=== PATIENT | male | born 1985 | race Caucasian/White ===

== ENCOUNTER 2018-11-08 01:47 | Emergency (ER) | payer MEDICAID ==
[~2018-11-08] VITALS: Ht 177.8 cm; Wt 108.9 kg
[2018-11-08 01:49] VITALS: BP 145/78
--- NOTE | 2018-11-08 01:54 | NUR ---
PT AMBULATED TO BED 1. Addendum: 11/08/18 at 0159 by MEDJ PT AMBULATED TO BED 6.
[2018-11-08] MEDS ORDERED: KETOROLAC 60 MG/2 ML VIAL IM ONE ×2 (02:00→02:10)
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
--- NOTE | 2018-11-08 02:35 | NUR ---
XRAY AT BEDSIDE.
--- NOTE | 2018-11-08 02:50 | NUR ---
PT TAKEN TO XRAY VIA WC.
--- NOTE | 2018-11-08 03:30 | NUR ---
PT SLEEPING IN BED WITH VSS. SKIN PINK, WARM, DRY. BREATHING EVEN, UNLABORED.
[2018-11-08] MEDS ORDERED: MORPHINE SULFATE 4 MG/ML SYR IM ONE (03:40)
--- NOTE | 2018-11-08 04:30 | NUR ---
PT IS GROGGY, HAS DIFFICULTY KEEPING EYES OPEN AND WILL REQUIRE WC ASSIST.
[2018-11-08 04:40] VITALS: BP 140/85
--- NOTE | 2018-11-08 04:40 | NUR ---
Patient discharged with v/s stable. Written and verbal after care instructions given and explained. Patient alert, oriented and verbalized understanding of instructions. Wheel chair assist provided by EMT. All questions addressed prior to discharge. ID band removed. Patient advised to follow up with PMD. Rx of Motrin and [place] given. Patient educated on indication of medication including possible reaction and side effects. Opportunity to ask questions provided and answered.
--- NOTE | 2018-11-08 04:40 | NUR ---
Note undone in EDM - 11/08/18 at 0508 by [facility] Patient discharged with v/s stable. Written and verbal after care instructions given and explained. Patient alert, oriented and verbalized understanding of instructions. Ambulatory with steady gait. All questions addressed prior to discharge. ID band removed. Patient advised to follow up with PMD. Rx of Motrin and [place] given. Patient educated on indication of medication including possible reaction and side effects. Opportunity to ask questions provided and answered.
== END 2018-11-08 04:40 | disposition home or self-care (01) ==
LOC: MED 01:47
DX: S43.101A Unspecified dislocation of right acromioclavicular joint, initial encounter (principal); V87.8XXA Person injured in other specified noncollision transport accidents involving motor vehicle (traffic), initial encounter; Y93.89 Activity, other specified; Y92.89 Other specified places as the place of occurrence of the external cause; Y99.8 Other external cause status
CPT/HCPCS: 73000; 96372; 99283; J1885; J2270

== ENCOUNTER 2020-12-16 20:11 | Emergency (ER) | payer MEDICAID, OTHER ==
[~2020-12-16] VITALS: Ht 177.8 cm; Wt 136.1 kg
[2020-12-16 20:40] VITALS: BP 145/81
--- NOTE | 2020-12-16 20:40 | NUR ---
TO BED AMBULATORY
--- NOTE | 2020-12-16 20:45 | NUR ---
PT. IS A 35 Y/O MALE THAT CAME INTO ED WITH C/O OF RIGHT LEG PAIN. PT. STATES THAT SINCE MONDAY AFTERNOON, HIS RIGHT LEG HAS BECOME RED AND SWOLLEN. PT. ALSO STATES THAT HE HAS PAIN WHEN HE STANDS ON IT, AND RATES IT AT 10/10 WHEN STANDING. PT. STATES " I FEEL LIKE THERE IS PRESSURE ON MY RIGHT LEG." PT. HAS 4CM ABRASION TO RIGHT LEG. PT. ALSO STATES HE HAD A FEVER ON MONDAY AND ADMITS TO NAUSEA, VOMIT, BUT DENIES DIARRHEA. AAOX4; VSS; BEDRAILS UP X1; HOB ELEVATED. PMH: ASTHMA, HEP. C ALLERGIES: NKA
[2020-12-16] MEDS ORDERED: KETOROLAC 30 MG/ML VIAL IM ONE (21:20)
[2020-12-16] MEDS ORDERED: cephALEXin 500 MG CAP PO ONE (21:20)
--- NOTE | 2020-12-16 21:28 | NUR ---
LAB AT BEDSIDE
[2020-12-16 21:38] LABS: BASOPHILS % (AUTO) 0.4 % (0.0-2.0); EOSINOPHILS # (AUTO) 0.1 K/uL (0-0.4); EOSINOPHILS % (AUTO) 0.7 % (0.0-4.0); HEMATOCRIT 36.1 % (36-52); HEMOGLOBIN 11.6 g/dL (12.0-18.0); LYMPHOCYTES # (AUTO) 1.4 K/uL (2.0-11.5); LYMPHOCYTES % (AUTO) 12.5 % (20.5-51.1); MEAN CORPUSCULAR HEMOGLOBIN 24 pg (27-31); MEAN CORPUSCULAR HGB CONC 32 g/dL (33-37); MEAN CORPUSCULAR VOLUME 73.3 fL (80-94); MONOCYTES % (AUTO) 8.9 % (1.7-9.3); NEUTROPHILS # (AUTO) 8.8 K/uL (1.8-7.7); NEUTROPHILS % (AUTO) 77.5 % (42.2-75.2); PLATELET COUNT (AUTO) 306 K/uL (140-450); RED BLOOD CELL COUNT(AUTO) 4.93 MIL/uL (4.20-6.10); RED CELL DISTRIBUTION WIDTH 17.5 % (11.6-13.7); WHITE BLOOD COUNT (AUTO) 11.3 K/uL (4.8-10.8)
--- NOTE | 2020-12-16 21:38 | NUR ---
ULTRASOUND AT BEDSIDE
[2020-12-16 21:45] LABS: ANION GAP 8.2 (8-16); CARBON DIOXIDE 29.5 mmol/L (21-32); CREATININE 1.2 mg/dL (0.6-1.3); POTASSIUM 3.7 mmol/L (3.5-5.1)
[2020-12-16] MEDS ORDERED: NAPR-54 PO (22:00)
[2020-12-16] MEDS ORDERED: CEPH-588 PO (22:00)
--- NOTE | 2020-12-16 22:00 | NUR ---
PT. LAYING COMFORTABLY IN SUPINE POSITION, VOICES NO COMPLAINTS AT THIS TIME.
[2020-12-16] MEDS ORDERED: ACET-10509 PO (22:01)
[2020-12-16 22:09] VITALS: BP 145/81
--- NOTE | 2020-12-16 22:09 | NUR ---
Patient discharged with v/s stable. Written and verbal after care instructions given and explained. Patient alert, oriented and verbalized understanding of instructions. Ambulatory with steady gait. All questions addressed prior to discharge. ID band removed. Patient advised to follow up with PMD. Rx of ACETAMINOPHEN, KEFLEX, AND NAPROXEN given. Patient educated on indication of medication including possible reaction and side effects. Opportunity to ask questions provided and answered.
== END 2020-12-16 22:09 | disposition home or self-care (01) ==
LOC: MED 20:11
DX: L03.115 Cellulitis of right lower limb (principal); J45.909 Unspecified asthma, uncomplicated; Z79.899 Other long term (current) drug therapy
CPT/HCPCS: 36415; 80048; 85025; 93971; 96372; 99284; J1885

== ENCOUNTER 2020-12-27 23:06 | Emergency (ER) | payer OTHER ==
[~2020-12-27 23:06] MED LIST: ACET-10509 PO; CEPH-588 PO; NAPR-54 PO
[2020-12-28 00:35] VITALS: BP 132/84
[2020-12-28] MEDS ORDERED: CLINDAMYCIN 900 MG/6 ML VIAL IV ONE (00:41)
--- NOTE | 2020-12-28 00:47 | NUR ---
PT UNABLE TO BE FOUND IN LOBBY AND CALLED ON PERSONAL CELLPHONE. PT REQUESTING TO BE SENT TO [facility], EXPLAINED TO PT THE PROCEDURES OF THE ADMISSION PROCESS. 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 HCEN MADE AWARE.
--- NOTE | 2020-12-28 01:09 | NUR ---
PATIENT ELOPED FROM FACILITY. DISCHARGE INSTRUCTIONS NOT GIVEN TO PATIENT. DR. CHEN NOTIFIED.
[2020-12-28] MEDS: CLINDAMYCIN 900 MG in DEXTROSE 5% 100 ML IV ONE (01:18)
[2020-12-28] MEDS ORDERED: NAPR-1704 PO (09:46)
[2020-12-28] MEDS ORDERED: SULF-58 PO (09:46)
== END 2020-12-28 01:09 | disposition left against medical advice (07) ==
LOC: MED 23:06
DX: L03.115 Cellulitis of right lower limb (principal)
CPT/HCPCS: 99281; J3490; 99283

== ENCOUNTER 2020-12-28 09:08 | Emergency (ER) | payer OTHER ==
[~2020-12-28] VITALS: Ht 177.8 cm; Wt 151.5 kg
[2020-12-28 09:20] VITALS: BP 145/76
--- NOTE | 2020-12-28 09:33 | NUR ---
TO ER BED 3
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
--- NOTE | 2020-12-28 09:40 | NUR ---
ermd at bedside for assessment
[2020-12-28] MEDS ORDERED: SULF-58 PO (09:46)
[2020-12-28] MEDS ORDERED: NAPR-1704 PO (09:46)
[2020-12-28 10:23] VITALS: BP 142/70
--- NOTE | 2020-12-28 10:24 | NUR ---
Patient discharged with v/s stable. Written and verbal after care instructions given and explained. Patient alert, oriented and verbalized understanding of instructions. Ambulatory with steady gait. All questions addressed prior to discharge. ID band removed. Patient advised to follow up with PMD. Rx of NAPROSYN,BACTRIM,KEFLEX given. Patient educated on indication of medication including possible reaction and side effects. Opportunity to ask questions provided and answered.
== END 2020-12-28 10:23 | disposition home or self-care (01) ==
LOC: MED 09:08
DX: L03.115 Cellulitis of right lower limb (principal); J45.909 Unspecified asthma, uncomplicated; Z79.899 Other long term (current) drug therapy
CPT/HCPCS: 90471; 90715; 99283

== ENCOUNTER 2021-11-27 06:09 | Emergency (ER) | payer OTHER ==
[~2021-11-27] VITALS: Ht 177.8 cm; Wt 158.8 kg
[~2021-11-27 06:09] MED LIST changes: +NAPR-1704 PO; +SULF-58 PO
[2021-11-27 06:19] VITALS: BP 158/77
--- NOTE | 2021-11-27 06:23 | NUR ---
Patient ambulated to bed 9.
[2021-11-27] MEDS ORDERED: KETOROLAC 30 MG/ML VIAL IVP ONE (06:35)
[2021-11-27] MEDS ORDERED: CLINDAMYCIN 300 MG in DEXTROSE 5% 50 ML IV ONE (06:35)
[2021-11-27] MEDS ORDERED: NACL 0.9% 1,000 ML IV ONE (06:35)
--- NOTE | 2021-11-27 06:46 | NUR ---
labs collected and taken to lab.
--- NOTE | 2021-11-27 06:46 | NUR ---
rad at bedside.
--- NOTE | 2021-11-27 06:49 | NUR ---
36 yo m bib self with c/c of 8/10 rt leg pain x2days. pt's rt lower leg is red and warm with what appears to have been an ulcer or bite angel. pt states he woke up 2 days ago and his leg was red. pt states he had a fever last night. denies taking medication for pain. reports he has been treated for rt leg cellulitis in the past. denies hx, rx and allergies
[2021-11-27] MEDS ORDERED: CLINDAMYCIN 600 MG/4 ML VIAL ONE (06:55)
--- NOTE | 2021-11-27 07:17 | NUR ---
report given to donald santiago. transfer of care at this time.
--- NOTE | 2021-11-27 07:18 | NUR ---
Received report from STEVE Rasheed. Transfer of care at this time.
[2021-11-27 07:45] LABS: BASOPHILS # (AUTO) 0.1 K/uL (0.00-0.22); BASOPHILS % (AUTO) 0.7 % (0.0-2.0); EOSINOPHILS # (AUTO) 0.3 K/uL (0-0.4); EOSINOPHILS % (AUTO) 2.9 % (0.0-4.0); HEMATOCRIT 32.5 % (36-52); HEMOGLOBIN 10.2 g/dL (12.0-18.0); LYMPHOCYTES # (AUTO) 1.6 K/uL (2.0-11.5); LYMPHOCYTES % (AUTO) 18.3 % (20.5-51.1); MEAN CORPUSCULAR HEMOGLOBIN 20 pg (27-31); MEAN CORPUSCULAR HGB CONC 31 g/dL (33-37); MEAN CORPUSCULAR VOLUME 63.2 fL (80-94); MONOCYTES # (AUTO) 0.9 K/uL (0.8-1.0); MONOCYTES % (AUTO) 10.3 % (1.7-9.3); NEUTROPHILS # (AUTO) 5.8 K/uL (1.8-7.7); NEUTROPHILS % (AUTO) 67.8 % (42.2-75.2); PLATELET COUNT (AUTO) 375 K/uL (140-450); RED BLOOD CELL COUNT(AUTO) 5.14 MIL/uL (4.20-6.10); RED CELL DISTRIBUTION WIDTH 19.7 % (11.6-13.7); WHITE BLOOD COUNT (AUTO) 8.6 K/uL (4.8-10.8)
[2021-11-27 08:17] LABS: CARBON DIOXIDE 27.7 mmol/L (21-32); CREATININE 1.1 mg/dL (0.6-1.3); POTASSIUM 3.7 mmol/L (3.5-5.1); TOTAL BILIRUBIN 0.2 mg/dL (0.0-1.0)
--- NOTE | 2021-11-27 08:25 | NUR ---
bryan platt) collected and given to analytical laboratory technician.
[2021-11-27] MEDS ORDERED: CLIN300C2 PO (09:05)
[2021-11-27] MEDS ORDERED: BACI1PAC4 TP (09:05)
[2021-11-27] MEDS ORDERED: IBUP-2213 PO (09:05)
[2021-11-27 09:15] VITALS: BP 149/73
--- NOTE | 2021-11-27 09:15 | NUR ---
Patient discharged with v/s stable. Written and verbal after care instructions given and explained. Patient alert, oriented and verbalized understanding of instructions. Ambulatory with steady gait. All questions addressed prior to discharge. ID band removed. Patient advised to follow up with PMD. Rx of Bacitracin, Ibuprofen, Clindamycin given. Patient educated on indication of medication including possible reaction and side effects. Opportunity to ask questions provided and answered.
== END 2021-11-27 09:15 | disposition home or self-care (01) ==
LOC: MED 06:09
DX: L03.115 Cellulitis of right lower limb (principal); Z20.822 Contact with and (suspected) exposure to COVID-19; J45.909 Unspecified asthma, uncomplicated
CPT/HCPCS: 36415; 73590; 80053; 85025; 85651; 86140; 87040; 87426; 96365; 96375; 99284; J1885; J3490; J7030; Q0092